=== PATIENT | female | born 1970 | race Asian ===

== ENCOUNTER 2017-01-12 09:43 | Outpatient (CLI) | payer BC | END 2017-01-12 21:14 | disposition home or self-care (01) | LOC: MAMMO 09:43 | DX: Z12.31 Encounter for screening mammogram for malignant neoplasm of breast (principal) ==

== ENCOUNTER 2018-01-20 14:53 | Outpatient (CLI) | payer BC | END 2018-01-20 20:19 | disposition home or self-care (01) | LOC: MAMMO 14:53 | DX: Z12.31 Encounter for screening mammogram for malignant neoplasm of breast (principal) ==

== ENCOUNTER 2019-01-22 14:55 | Outpatient (CLI) | payer BC | END 2019-01-22 20:01 | disposition home or self-care (01) | LOC: MAMMO 14:55 | DX: Z12.31 Encounter for screening mammogram for malignant neoplasm of breast (principal) ==

== ENCOUNTER 2019-04-06 08:43 | Outpatient (CLI) | payer BC | END 2019-04-06 19:27 | disposition home or self-care (01) | LOC: US 08:43 | DX: R59.0 Localized enlarged lymph nodes (principal) ==

== ENCOUNTER → 2019-04-06 18:29 | Outpatient (CLI) | payer BC | END | disposition home or self-care (01) | LOC: AMB 18:29 | DX: Z04.1 Encounter for examination and observation following transport accident (principal); S63.255A Unspecified dislocation of left ring finger, initial encounter ==

== ENCOUNTER 2020-01-25 09:50 | Outpatient (CLI) | payer BC | END 2020-01-25 20:35 | disposition home or self-care (01) | LOC: MAMMO 09:50 | DX: Z12.31 Encounter for screening mammogram for malignant neoplasm of breast (principal) ==

== ENCOUNTER 2021-02-02 09:32 | Outpatient (CLI) | payer BC | END 2021-02-02 19:22 | disposition home or self-care (01) | LOC: MAMMO 09:32 | PROVIDERS: ATTEND Obstetrics & Gynecology | DX: Z12.31 Encounter for screening mammogram for malignant neoplasm of breast (principal) ==

== ENCOUNTER 2021-03-02 23:57 | Emergency (ER) | payer BC ==
[~2021-03-02] VITALS: Ht 157.5 cm; Wt 69.4 kg
[2021-03-03 00:50] VITALS: BP 138/72; TEMP 98.8
== END 2021-03-03 00:55 | disposition home or self-care (01) ==
LOC: ED 23:57
DX: T78.40XA Allergy, unspecified, initial encounter (principal); L50.8 Other urticaria; R21 Rash and other nonspecific skin eruption; T37.8X5A Adverse effect of other specified systemic anti-infectives and antiparasitics, initial encounter; Y92.89 Other specified places as the place of occurrence of the external cause
CPT/HCPCS: 96372; 99283; J2930; J3410

== ENCOUNTER 2021-03-26 10:07 | Outpatient (CLI) | payer BC | END 2021-03-26 19:24 | disposition home or self-care (01) | LOC: CT 10:07 | PROVIDERS: ATTEND Specialist | DX: R10.9 Unspecified abdominal pain (principal); R31.9 Hematuria, unspecified ==

== ENCOUNTER 2022-02-04 08:54 | Outpatient (CLI) | payer BC | END 2022-02-04 19:03 | disposition home or self-care (01) | LOC: MAMMO 08:54 | PROVIDERS: ATTEND Obstetrics & Gynecology | DX: Z12.31 Encounter for screening mammogram for malignant neoplasm of breast (principal) ==

== ENCOUNTER 2022-10-09 08:38 | Outpatient (CLI) | payer BC ==
[2022-10-09 09:59] LABS: PLATELET COUNT 301 K/uL (152-353)
[2022-10-09 10:14] LABS: POTASSIUM 3.7 mmol/L (3.6-5.2)
== END 2022-10-09 19:47 | disposition home or self-care (01) ==
LOC: RESP 08:38 → LABW 08:38
PROVIDERS: ATTEND Family Medicine
DX: R00.2 Palpitations (principal); Z13.220 Encounter for screening for lipoid disorders
CPT/HCPCS: 36415; 80053; 80061; 81000; 83036; 84439; 84443; 84481; 85027; 93005